=== PATIENT | male | born 1960 | race Caucasian/White ===

== ENCOUNTER → 2022-11-30 09:22 | Outpatient (BNVA) | payer OTHER, SELFPAY | PROVIDERS: PCP Nurse Practitioner; Visit Provider Internal Medicine Cardiovascular Disease | DX: I48.91 Unspecified atrial fibrillation (principal); E78.5 Hyperlipidemia, unspecified; G47.30 Sleep apnea, unspecified; E11.9 Type 2 diabetes mellitus without complications; Z87.891 Personal history of nicotine dependence | CPT/HCPCS: 93005; 99204 ==

== ENCOUNTER 2022-12-17 10:20 | Outpatient (CLI) | payer OTHER, SELFPAY ==
--- NOTE | 2022-12-17 11:00 | USCV_ITS ---
Tim Owusu Age: 62 Gender: M : 1960 Exam Date: 12/17/2022 11:09 Ordering Phys: Marisol Mahmood MD ([email or web address]) Technologist: CT Exam Location: [facility] – [place] Indication: Atrial fibrillation BP: 140 / 80 HR: 68 Rhythm: Sinus Technical Quality: Adequate MEASUREMENTS (Male / Female) Normal Values 2D ECHO LV Diastolic Diameter PLAX 5.6 cm 4.2 - 5.9 / 3.9 - 5.3 cm LV Systolic Diameter PLAX 3.7 cm LV Chamber Size 4.8 cm IVS Diastolic Thickness 1.3 cm 0.6 - 1.0 / 0.6 - 0.9 cm IVS Systolic Thickness 1.5 cm LVPW Diastolic Thickness 1.1 cm 0.6 - 1.0 / 0.6 - 0.9 cm LVPW Systolic Thickness 2.2 cm RV Chamber Size 3.7 cm LVOT Diameter 2.2 cm LV Ejection Fraction 2D Teich 62.9 % LV Ejection Fraction MOD 2C 66.3 % LV Ejection Fraction 2C AL 66.2 % LA Diameter 4.2 cm LA Width 3.9 cm LA Height 6.5 cm RA Width 4.0 cm RA Height 5.8 cm Aorta at Sinotubular Diameter 2.8 cm IVC Diameter 1.9 cm M-MODE Aortic Annulus Diameter 3.1 cm LA Ao Ratio MM 1.5 MV E Point Septal Separation 0.9 cm DOPPLER AV Peak Velocity 126.0 cm/s LVOT Peak Velocity 85.0 cm/s AV Area Cont Eq vti 2.4 cm squared AV Area Cont Eq pk 2.5 cm squared MV Peak Velocity 80.0 cm/s MV Area PHT 2.7 cm squared Mitral E to A Ratio 1.3 MV E' Velocity 42.5 cm/s Mitral E to MV E' Ratio 7.4 Mitral E to LV E' Lateral Ratio 5.9 Mitral E to LV E' Septal Ratio 9.9 TV Peak E Velocity 67.0 cm/s Right Atrial Pressure 3.0 mmHg PV Peak Velocity 97.0 cm/s FINDINGS Left Ventricle Normal left ventricular size, systolic function and wall thickness, with no regional wall motion abnormalities. Left ventricular ejection fraction is estimated at 60 %. Normal diastolic function. Right Ventricle Normal right ventricular size and systolic function. RVSP could not be calculated due to incomplete tricuspid regurgitation velocity profile. Right Atrium Normal right atrial size. Left Atrium Normal left atrial size. Mitral Valve Structurally normal mitral valve. No mitral valve stenosis. Trace mitral valve regurgitation. Aortic Valve Structurally normal trileaflet aortic valve. No aortic valve stenosis. No aortic valve regurgitation. Tricuspid Valve Structurally normal tricuspid valve. No tricuspid valve stenosis. Trace tricuspid valve regurgitation. Pulmonic Valve Structurally normal pulmonic valve. No pulmonary valve stenosis. Trace pulmonary valve regurgitation. Pericardium No pericardial effusion. Aorta Normal size aortic root and proximal ascending aorta. IVC Normal IVC dimension with >50% respiratory change of the inferior vena cava. CONCLUSIONS 1. Normal left ventricular size, systolic function and wall thickness, with no regional wall motion abnormalities. Left ventricular ejection fraction is estimated at 60 %. Normal diastolic function. 2. Normal right ventricular size and systolic function. 3. Trace mitral valve regurgitation. 4. No change when compared to study dated 03/09/2019. Marisol Mahmood MD (Electronically Signed) Final Date: 21 December 2022 16:40 S
== END 2022-12-17 10:21 | disposition home or self-care (01) ==
LOC: RAD 10:22
PROVIDERS: PCP Nurse Practitioner; Visit Provider Internal Medicine Cardiovascular Disease
DX: I48.91 Unspecified atrial fibrillation (principal); R06.02 Shortness of breath
CPT/HCPCS: 93306

== ENCOUNTER → 2023-01-05 14:01 | Outpatient (BNVA) | payer OTHER, SELFPAY | PROVIDERS: PCP Nurse Practitioner; Visit Provider Internal Medicine Cardiovascular Disease | DX: I48.91 Unspecified atrial fibrillation (principal); N52.9 Male erectile dysfunction, unspecified; G47.30 Sleep apnea, unspecified; E11.9 Type 2 diabetes mellitus without complications; E78.5 Hyperlipidemia, unspecified; Z87.891 Personal history of nicotine dependence; Z79.84 Long term (current) use of oral hypoglycemic drugs | CPT/HCPCS: 99214 ==

== ENCOUNTER 2023-01-17 07:54 | Outpatient (CLI) | payer OTHER, SELFPAY ==
[2023-01-17 09:38] LABS: Estmated Average Glucose 114; Hemoglobin A1C 5.6 % (4.0-6.0)
[2023-01-17 09:55] LABS: Alanine Aminotransferase 20 U/L (0-41); Albumin Level 4.4 g/dL (3.5-5.2); Anion Gap 15.1 (5-19); Aspartate Amino Transferase 18 U/L (0-40); Blood Urea Nitrogen 13 mg/dL (8-23); Calcium 9.4 mg/dL (8.5-10.5); Carbon Dioxide 28 mmol/L (22-29); Chloride 104 mmol/L (98-107); Chol HDL Ratio 4.73 mg/dL (1.0-5.00); Cholesterol 213 mg/dL (0-200); Globulin 2.6 g/dL (1.3-4.6); Glucose 99 mg/dL (65-115); HDL Cholesterol 45 mg/dL (60-100); LDL Cholesterol Calculated 150 mg/dL (50-129); LDL Cholesterol Direct 156 mg/dL (0-100); Osmolality Calculated 294 mOsm/kg (285-295); Potassium 5.1 mmol/L (3.5-5.1); Sodium 142 mmol/L (136-145); Total Bilirubin 0.5 mg/dL (0.15-1.2); Triglycerides 89 mg/dL (0-150)
[2023-01-17 09:56] LABS: Alkaline Phosphatase 77 U/L (40-130); LDL HDL Ratio 3.33 RATIO (0.00-3.22); Thyroid Stimulating Hormone 0.79 uIU/mL (0.27-4.20)
[2023-01-17 13:29] LABS: Basophils % 0.5 %; Eosinophils # 0.1 10^3/uL (0.0-0.8); Hematocrit 51.9 % (42.0-52.0); Hemoglobin 16.7 g/dL (11.7-16.6); Lymphocytes # 1.7 10^3/uL (0.8-4.8); Lymphocytes % 28.8 %; Mean Corpuscular HGB Conc 32.2 g/dL (30.0-36.0); Mean Corpuscular Hemoglobin 28.8 pg (28.0-34.0); Mean Corpuscular Volume 89.6 fl (80-94); Mean Platelet Volume 10.8 fL (7.4-10.4); Monocytes # 0.7 10^3/uL (0.2-0.9); Monocytes % 12.4 %; Neutrophils # 3.28 10^3/uL (1.8-7.7); Neutrophils % 56.8 %; Nucleated Red Blood Cells % 0 %; Platelet Count 238 10^3/cmm (130-400); Red Blood Count 5.79 10^6/uL (4.1-5.3); Red Cell Distribution Width 15.7 % (12.1-15.1); White Blood Count 5.8 10^3/uL (4.0-10.0)
[2023-01-17 13:48] LABS: Magnesium 2.2 mg/dL (1.7-2.3)
== END 2023-01-17 07:55 | disposition home or self-care (01) ==
PROVIDERS: PCP Nurse Practitioner; Visit Provider Internal Medicine Cardiovascular Disease
DX: E78.5 Hyperlipidemia, unspecified (principal); I48.91 Unspecified atrial fibrillation; Z79.899 Other long term (current) drug therapy
CPT/HCPCS: 36415; 80053; 80061; 83036; 83721; 83735; 84443; 85025

== ENCOUNTER → 2023-01-24 08:20 | Outpatient (BNVA) | payer OTHER, SELFPAY | PROVIDERS: PCP Nurse Practitioner; Visit Provider Internal Medicine Cardiovascular Disease | DX: I48.91 Unspecified atrial fibrillation (principal) | CPT/HCPCS: 93005 ==

== ENCOUNTER → 2023-02-18 10:05 | Outpatient (BNVA) | payer OTHER, SELFPAY | PROVIDERS: PCP Nurse Practitioner; Visit Provider Internal Medicine Cardiovascular Disease | DX: I48.91 Unspecified atrial fibrillation (principal) | CPT/HCPCS: 93005 ==

== ENCOUNTER → 2024-03-28 09:54 | Outpatient (BNVA) | payer OTHER, SELFPAY | PROVIDERS: PCP Nurse Practitioner; Referring Provider Nurse Practitioner; Visit Provider Surgery | DX: Z12.11 Encounter for screening for malignant neoplasm of colon (principal) | CPT/HCPCS: 99213 ==

== ENCOUNTER 2024-06-28 06:03 | Day surgery (SDC) | payer OTHER, SELFPAY ==
--- NOTE | 2024-06-28 05:40 | W.PM.OPSFHP ---
Same Day Surgery H&P Indication for Procedure/HPI DATE OF PROCEDURE: June 28, 2024 CHIEF COMPLAINT/INDICATIONFOR SURGICAL PROCEDURE: need for screening colonoscopy PREOP DIAGNOSIS: need for screening colonoscopy PLANNED PROCEDURE: Operation Date: 06/28/24 07:00 Proposed Procedures p Colonoscopy 24442, G0121, Z12.11(Not Applicable) - Nehemias Tellez MD Medications/Allergies* Home Medications Medication Instructions Recorded Confirmed Type apple cider vinegar 300 mg tablet 300 mg PO DAILY 11/30/22 06/26/24 History ascorbic acid (vitamin C) 1,000 mg 1 g PO DAILY 11/30/22 06/26/24 History tablet cholecalciferol (vitamin D3) 25 25 mcg PO DAILY 11/30/22 06/26/24 History mcg (1,000 unit) capsule meloxicam 15 mg tablet 15 mg PO DAILY PRN Inflammation 11/30/22 06/26/24 History multivitamin 1 tab PO DAILY 11/30/22 06/26/24 History rivaroxaban 20 mg tablet (Xarelto) 20 mg PO DAILY 11/30/22 06/26/24 History tumeric 1,000 mg PO DAILY 11/30/22 06/26/24 History vitamin B complex (B 1 tab PO DAILY 11/30/22 06/26/24 History Complex-Vitamin B12 tablet) vitamin E acetate 134 mg (200 134 mg PO DAILY 11/30/22 06/26/24 History unit) capsule sotalol 120 mg tablet 120 mg PO ONCE 03/28/24 06/26/24 History metoprolol succinate 50 mg 50 mg PO DAILY 06/26/24 06/26/24 History tablet,extended release 24 hr Allergies/Adverse Reactions Allergy/AdvReac Type Severity Reaction Status Date / Time No Known Allergies Allergy Unverified 03/28/24 10:06 Pertinent History/Comorbid Conditions* Medical History (Updated 01/09/23 @ 14:37 by Marisol Mahmood MD) Hyperlipidemia Sleep apnea Diabetes mellitus Diabetic neuropathy Osteoarthritis Atrial fibrillation History of diverticulitis Surgical History (Updated 11/30/22 @ 09:50 by Marisol Mahmood MD) S/P colon resection (~2008) History of ankle surgery S/P knee surgery S/P sinus surgery S/P hernia surgery Family History (Updated 11/30/22 @ 09:38 by Gina Harp, RN) Myocardial infarction Father Social History Smoking and tobacco/nicotine status: never used tobacco/nicotine Pertinent Exam Findings alert, oriented x 3, clear to auscultation bilaterally, regular rate & rhythm and operative site marked Recommendations Surgery/Procedure today Coding Level of Care Code Acute Code for Chg Ed
[2024-06-28 06:14] VITALS: BP 112/81; PULSE 63; RESP 18; TEMP 36; O2SAT 96; BMI 36.9
[2024-06-28] MEDS: sodium chloride 0.9% 1,000 ML 30 ML IV (06:28)
--- NOTE | 2024-06-28 06:51 | ANES.PREANE2 ---
Pre-Anesthetic Assessment Height/Weight: Height 1.75 m Weight 113.398 kg Temp Pulse Resp BP Pulse Ox O2 Del Method 96.8 F L 63 18 112/81 96 Room Air 06/28/24 06:14 06/28/24 06:14 06/28/24 06:14 06/28/24 06:14 06/28/24 06:14 06/28/24 06:14 Preop Diagnosis: need for screening colonoscopy Operation Date: 06/28/24 07:00 Proposed Procedures p Colonoscopy 08706, G0121, Z12.11(Not Applicable) - Nehemias Tellez MD Was Beta Minh taken within 24 hours: Yes Last intake: Intake Last Liquid Date 06/27/24 Last Liquid Time 22:00 Last Solid Date 06/26/24 Last Solid Time 19:00 Last Intake: 22:00 Social Alcohol (daily) Exam alert, oriented x 3, clear to auscultation bilaterally and regular rate & rhythm Airway Submandibular: within normal limits Cervical ROM: within normal limits Mallampati: Class III Dentition: chipped History/ROS No significant history except as noted Pulmonary Sleep Apnea (CPAP) CV/HEM Atrial Fibrillation None reported Hepatic None reported Metabolic Hyperlipidemia and Morbid [place] [facility] [place] None reported Neuropsych Neuropathy (BLE) Anesthetic Plan ASA status: 3 Anesthesia: Anesthesia Evaluation and MAC Medications/Allergies Home Medications Medication Instructions Recorded Confirmed Last Taken Type apple cider vinegar 300 mg tablet 300 mg PO DAILY 11/30/22 06/26/24 06/27/24 22:30 History ascorbic acid (vitamin C) 1,000 mg 1 g PO DAILY 11/30/22 06/26/24 06/27/24 22:30 History tablet cholecalciferol (vitamin D3) 25 25 mcg PO DAILY 11/30/22 06/26/24 06/27/24 22:30 History mcg (1,000 unit) capsule meloxicam 15 mg tablet 15 mg PO DAILY PRN Inflammation 11/30/22 06/26/24 06/27/24 22:30 History multivitamin 1 tab PO DAILY 11/30/22 06/26/24 06/27/24 22:30 History rivaroxaban 20 mg tablet (Xarelto) 20 mg PO DAILY 11/30/22 06/26/24 06/27/24 22:30 History tumeric 1,000 mg PO DAILY 11/30/22 06/26/24 06/27/24 22:30 History vitamin B complex (B 1 tab PO DAILY 11/30/22 06/26/24 06/27/24 22:30 History Complex-Vitamin B12 tablet) vitamin E acetate 134 mg (200 134 mg PO DAILY 11/30/22 06/26/24 06/27/24 22:30 History unit) capsule metoprolol tartrate 25 mg tablet 25 mg PO DAILY PRN HR >100 bpm #60 12/03/22 06/26/24 06/27/24 22:30 Rx tabs lovastatin 10 mg tablet 10 mg PO DAILY #90 tabs 01/25/23 06/26/24 06/27/24 22:30 Rx sotalol 80 mg tablet 80 mg PO DIRECTED #180 tabs 02/07/23 06/26/24 06/27/24 22:30 Rx sotalol 120 mg tablet 120 mg PO ONCE 03/28/24 06/26/24 06/27/24 22:30 History metoprolol succinate 50 mg 50 mg PO DAILY 06/26/24 06/26/24 06/27/24 22:30 History tablet,extended release 24 hr Allergies Allergy/AdvReac Type Severity Reaction Status Date / Time No Known Allergies Allergy Unverified 06/28/24 06:23 Current Medications Generic Name Dose Route Start Last Admin Trade Name Freq PRN Reason Stop Dose Admin Sodium Chloride 1,000 mls @ 30 mls/hr 06/28/24 06:15 06/28/24 06:28 Sodium Chloride 0.9% IV 30 mls/hr .Q24H JONATHAN Administration PFSH Anesthesia Medical History Hyperlipidemia Sleep apnea Diabetes mellitus Diabetic neuropathy Osteoarthritis Atrial fibrillation History of diverticulitis Surgical History (Updated 03/28/24 @ 10:13 by ISABELL High) S/P colon resection (~2008) History of ankle surgery S/P knee surgery S/P sinus surgery S/P hernia surgery Family History Father Myocardial infarction Social History Smoking and tobacco/nicotine status: never used tobacco/nicotine Data Anesthesia Cardiac Studies: Echocardiogram 12/17/22 Cardiac Event Monitor 01/14/23
[2024-06-28 07:30] VITALS: BP 105/59; PULSE 65; RESP 16; TEMP 36.1; O2SAT 92
[2024-06-28 07:49] VITALS: BP 107/70; PULSE 60; RESP 18; O2SAT 96
--- NOTE | 2024-06-28 07:57 | ANE.PACU2 ---
Inpatient post-anesthesia follow up: Airway intact: Yes Vital signs: Temperature 97 F Pulse Rate 60 Respiratory Rate 18 Blood Pressure 107/70 Pulse Oximetry 96 Oxygen Delivery Me thod Room Air Oxygen Flow Rate Fraction of Inspir ed Oxygen Hydration adequate: Yes Nausea and vomiting: No Pain level: 1 Mental status: Baseline
== END 2024-06-28 07:57 | disposition home or self-care (01) ==
PROVIDERS: PCP Nurse Practitioner; Visit Provider Surgery
PROC: 0DJD8ZZ Inspection of Lower Intestinal Tract, Via Natural or Artificial Opening Endoscopic (ICD-10-PCS; CPT 45378; principal; 2024-06-28 07:00)
DX: Z12.11 Encounter for screening for malignant neoplasm of colon (principal); D12.3 Benign neoplasm of transverse colon; D12.8 Benign neoplasm of rectum; E78.5 Hyperlipidemia, unspecified; G47.30 Sleep apnea, unspecified; E11.40 Type 2 diabetes mellitus with diabetic neuropathy, unspecified; I48.91 Unspecified atrial fibrillation
CPT/HCPCS: 45380; 45385; 88305; J2704; J3490; J7030

== ENCOUNTER → 2024-07-17 08:13 | Outpatient (BNVA) | payer OTHER, SELFPAY | PROVIDERS: PCP Nurse Practitioner; Visit Provider Surgery | DX: Z09 Encounter for follow-up examination after completed treatment for conditions other than malignant neoplasm (principal) | CPT/HCPCS: 99213 ==